=== PATIENT | female | born 1980 | race Caucasian/White ===

== ENCOUNTER 2016-09-25 11:47 | Inpatient (IN) | payer OTHER ==
[~2016-09-25] VITALS: Ht 162.6 cm; Wt 91.6 kg
[2016-09-25 12:21] LABS: HEMOGLOBIN 11.6 gm/dl (12.3-15.3); RED BLOOD COUNT 3.92 M/UL (4.00-5.10); WHITE BLOOD COUNT 18.2 K/UL (4.5-11.0)
[2016-09-25 12:47] LABS: BUN/CREATININE RATIO 14 (0-10)
[2016-09-27 03:41] LABS: HEMOGLOBIN 10.3 gm/dl (12.3-15.3)
[2016-09-28] MEDS ORDERED: COLACE 100MG C100 MG PO (09:55)
== END 2016-09-28 11:18 | disposition home or self-care (01) | DRG 774 ==
LOC: GENOP 11:47 → OB 11:59
PROVIDERS: Obstetrics & Gynecology; ADMIT Obstetrics & Gynecology
PROC: 10E0XZZ Delivery of Products of Conception, External Approach (ICD-10-PCS; principal; 2016-09-26)
PROC: 10907ZC Drainage of Amniotic Fluid, Therapeutic from Products of Conception, Via Natural or Artificial Opening (ICD-10-PCS; 2016-09-26)
PROC: 3E0R3CZ (ICD-10-PCS; 2016-09-26)
PROC: 3E0234Z Introduction of Serum, Toxoid and Vaccine into Muscle, Percutaneous Approach (ICD-10-PCS; 2016-09-27)
PROC: 3E0234Z Introduction of Serum, Toxoid and Vaccine into Muscle, Percutaneous Approach (ICD-10-PCS; 2016-09-28)
DX: O99.324 Drug use complicating childbirth (principal); O98.42 Viral hepatitis complicating childbirth; F11.20 Opioid dependence, uncomplicated; O86.20 Urinary tract infection following delivery, unspecified; O26.893 Other specified pregnancy related conditions, third trimester; Z67.41 Type O blood, Rh negative; B18.2 Chronic viral hepatitis C; O34.43 Maternal care for other abnormalities of cervix, third trimester; O99.214 Obesity complicating childbirth; E66.9 Obesity, unspecified; O99.334 Smoking (tobacco) complicating childbirth; F17.200 Nicotine dependence, unspecified, uncomplicated; O99.713 Diseases of the skin and subcutaneous tissue complicating pregnancy, third trimester; L98.499 Non-pressure chronic ulcer of skin of other sites with unspecified severity; Z3A.37 37 weeks gestation of pregnancy; Z37.0 Single live birth; Z29.13 Encounter for prophylactic Rho(D) immune globulin; Z23 Encounter for immunization; Z87.442 Personal history of urinary calculi; Z68.34 Body mass index [BMI] 34.0-34.9, adult; Z98.890 Other specified postprocedural states; Z82.49 Family history of ischemic heart disease and other diseases of the circulatory system; Z80.1 Family history of malignant neoplasm of trachea, bronchus and lung; Z83.3 Family history of diabetes mellitus
CPT/HCPCS: 36415; 51702; 80053; 80307; 81001; 82800; 85014; 85018; 85025; 85461; 85610; 85730; 86850; 86900; 86901; 90715; J2590; J2790; J2795; J3010; J7120